=== PATIENT | female | born 1955 | race Caucasian/White ===

== ENCOUNTER → 2019-11-17 | Outpatient (CLI) | payer OTHER ==
--- NOTE | 2019-11-18 07:16 | US ---
EXAMINATION TYPE: US pelvis complete transvag DATE OF EXAM: 11/17/2019 COMPARISON: NONE CLINICAL HISTORY: N83.292 Other ovarian cyst, left side. Patient states she had a hysterectomy at age 23, doesn't know if she has both of her ovaries TECHNIQUE: . Transabdominal sonographic images of the pelvis were acquired. Transvaginal sonographi c images were medically necessary to better assess the following anatomy: ovaries Date of LMP: age 23 EXAM MEASUREMENTS: Uterus: Surgically absent Endometrial Stripe: Surgically absent Right Ovary: Not visualized with certainty Left Ovary: Not visualized with certainty 1. Uterus: Surgically absent 2. Endometrium: Surgically absent 3. Right Ovary: Not visualized with certainty 4. Left Ovary: Not visualized with certainty 5. Bilateral Adnexa: wnl 6. Posterior cul-de-sac: wnl IMPRESSION: 1. Postsurgical changes with no definite acute process.
== END | disposition home or self-care (01) ==
LOC: RADUSWWP 15:22
DX: N83.292 Other ovarian cyst, left side (principal); Z98.890 Other specified postprocedural states
CPT/HCPCS: 76830; 76856